=== PATIENT | female | born 1975 | race Caucasian/White ===

== ENCOUNTER 2017-06-12 08:58 | Inpatient (IN) | payer OTHER ==
--- NOTE | 2017-06-06 16:35 | MH ---
cc: DELMA LESLIE DATE OF ADMISSION: 06/12/2017 DATE OF 1975 PRINCIPAL DIAGNOSIS History of right breast cancer in 2016 with a hereditary breast cancer mutation. ATTENDING PHYSICIAN Delma Leslie MD HISTORY OF PRESENT ILLNESS The patient is a 41-year-old female originally from [place], diagnosed with stage III right breast cancer in March of 2016. She was treated with lumpectomy and axillary dissection for a T2N3 carcinoma involving infraclavicular lymph nodes. This included a level three axillary dissection extending up to the subclavian vein and was followed by whole breast as well as axillary radiation. She also received adjuvant chemotherapy with Adriamycin and Cytoxan. Her tumor was ER/DE positive and HER2/malick amplified but she did not receive trastuzumab. She subsequently immigrated to the [place] and was evaluated by Dr. Kee in medical oncology and was started on Herceptin in November of 2016. She also underwent genetic testing which was positive for a heterozygous BRCA2 mutation. She has opted for bilateral mastectomy with immediate tissue sample color maker reconstruction and is also awaiting a gynecology evaluation to discuss laparoscopic oophorectomy. ALLERGIES She has no drug allergies. CURRENT MEDICATIONS Tamoxifen 20 mg daily. MEDICAL PROBLEMS Included stage III right breast cancer. PAST SURGERIES As described above. REVIEW OF SYSTEMS A 12-point review of systems was otherwise noncontributory. PHYSICAL EXAMINATION GENERAL: She is alert and oriented x3 and in no acute distress. VITAL SIGNS: She was 5 feet 3.8 inches and weighed 170 pounds with a BMI of 30. Blood pressure was 122/82, temperature 98.5, heart rate 63, respirations 16. HEENT: Exam was unremarkable. NECK: The neck was supple with no adenopathy or thyromegaly. CHEST: Chest was clear throughout. CARDIAC: Exam was unremarkable. BREASTS: Exam revealed fibrocystic changes with an area of induration in the upper outer right breast and a 12 o'clock crescent scar with associated induration and volume loss. She also has hyperpigmentation and central breast edema on the right side. There is no adenopathy. ABDOMEN: The abdomen was soft and nontender with no hepatosplenomegaly or masses. The remainder of her exam was unremarkable. IMPRESSION Ms. Warren has a history of stage III right breast cancer with previous radiation as well as adjuvant chemotherapy. Because she has a genetic predisposition, she is now opting for bilateral mastectomy with immediate reconstruction and this will be coordinated with Dr. Rodriguez. She will not require further axillary sampling. [facility] #[id number]. MD MARILYN Pyle/DEYSI /3:56 PM /4:04 PM
[~2017-06-12] VITALS: Ht 162.6 cm; Wt 76.8 kg
[~2017-06-12 08:58] MED LIST: TAMO20TA6 PO; [UNRECOGNIZED DRUG - CODE] IV-CENTRAL
[2017-06-12] MEDS ORDERED: ONDANSETRON HCL 4 MG/2 ML VIAL IV PUSH SCH (09:30)
[2017-06-12] MEDS ORDERED: CHLORHEXIDINE GLUCONATE 2 % 1 PACK (2 CLOTHS) TOPICAL PRN (09:30)
[2017-06-12] MEDS ORDERED: INSULIN HUMAN REGULAR 1,000 UNITS/10 ML VIAL SQ PRN (09:30)
[2017-06-12] MEDS ORDERED: POVIDONE IODINE 5% (ANTISEPSIS KIT) 4 APPLICATIONS EACH NARE PRN (09:30)
[2017-06-12] MEDS ORDERED: METOPROLOL TARTRATE 25 MG TAB PO PRN (09:30)
[2017-06-12] MEDS ORDERED: LACTATED RINGER'S 1000 ML IV PRN (09:30)
[2017-06-12] MEDS ORDERED: ceFAZolin 2 GM PREMIX 50 ML IV SCH ×2 (09:30→18:30)
[2017-06-12] MEDS ORDERED: SODIUM CHLORID 0.9% 500 ML IV PRN (09:30)
[2017-06-12] MEDS ORDERED: ACETAMINOPHEN 1000 MG/100 ML 100 ML IV ONE (11:08)
[2017-06-12] MEDS ORDERED: FAMOTIDINE 20 MG/2 ML VIAL ONE (11:08)
[2017-06-12] MEDS ORDERED: MIDAZOLAM HCL 2 MG/2 ML VIAL ONE (11:08)
[2017-06-12] MEDS ORDERED: DEXAMETHASONE SOD PHOS 4 MG/ML VIAL ONE (11:08)
[2017-06-12] MEDS ORDERED: BACITRACIN TOP OINT 15 GM TUBE ONE (11:22)
[2017-06-12] MEDS ORDERED: fentaNYL CITRATE 250 MCG/5 ML AMP ONE (11:22)
[2017-06-12] MEDS ORDERED: HYDROmorphone HCL PF 2 MG/ML VIAL ONE (11:22)
[2017-06-12] MEDS ORDERED: GENTAMICIN SULFATE 80 MG/2 ML VIAL ONE (11:22)
[2017-06-12] MEDS ORDERED: BUPIVACAINE/EPINEPHRINE 0.5% 50 ML VIAL ONE (11:50)
[2017-06-12] MEDS ORDERED: PROPOFOL 200 MG/20 ML AMP IV ONE (12:00)
[2017-06-12] MEDS ORDERED: LACTATED RINGER'S 1000 ML INJ 1,000 ML IV ONE (12:00)
[2017-06-12] MEDS ORDERED: NEOSTIGMINE 3 MG/3 ML SYR IV ONE (12:00)
[2017-06-12] MEDS ORDERED: ceFAZolin INJ 1,000 MG VIAL IV ONE ×2 (12:00→14:26)
[2017-06-12] MEDS ORDERED: ONDANSETRON HCL 4 MG/2 ML VIAL IV PUSH ONE (12:00)
[2017-06-12] MEDS ORDERED: DO NOT ADM ANY ANTICOAGULANT DRUGS PRN (15:03)
[2017-06-12] MEDS ORDERED: *morphine SULFATE 8 MG/ML PERIprocedure ONLY ONE ×2 (15:16→15:30)
[2017-06-12] MEDS: LACTATED RINGER'S 1000 ML INJ 1,000 ML IV SCH ×2 (15:20→20:52)
[2017-06-12] MEDS: ceFAZolin 2 GM PREMIX 50 ML IV SCH (15:35)
[2017-06-12 16:00] VITALS: BP 99/58; PULSE 50; RESP 16; TEMP 96.4; O2SAT 95
[2017-06-12] MEDS ORDERED: *ONDANSETRON 4 MG VIAL PERIprocedural Use ONLY ONE (16:48)
[2017-06-12 20:00] VITALS: BP 102/57; PULSE 50; RESP 18; TEMP 96.4; O2SAT 96
[2017-06-12 20:24] VITALS: O2SAT 95
[2017-06-12] MEDS: ONDANSETRON HCL 4 MG/2 ML VIAL IV PRN (20:43)
[2017-06-12] MEDS: MORPHINE SULFATE 4 MG/ML INJ IV PRN (20:46)
[2017-06-13] VITALS (8 sets, daily range): BP systolic 103–116; BP diastolic 53–68; PULSE 51–86; RESP 16–21; TEMP 97.5–99.2; O2SAT 92–96
[2017-06-13] MEDS: ceFAZolin 2 GM PREMIX 50 ML IV SCH ×2 (00:31→08:14)
[2017-06-13] MEDS: MORPHINE SULFATE 4 MG/ML INJ IV PRN ×2 (00:31→06:08)
--- NOTE | 2017-06-13 08:04 | PD.PLAS.PN ---
Subjective Remarks Patient doing well Had good sleep Pain mild to moderate, ok with Rx No nausea. vital normal Breast flaps soft good color. No bruising noted yet Small area of fullness just medial to the chemo port on the left side No clear hematoma MINISTERIO drains active. OK to discharge when see by Dr. Plummer Will follow in office Saturday. Vital Signs Date Time Temp Pulse Resp B/P (MAP) Pulse Ox O2 Delivery O2 Flow Rate FiO2 06/13/17 06:15 97.5 58 18 116/58 (77) 96 06/13/17 00:00 97.9 51 18 111/59 (76) 92 06/12/17 20:24 95 2.00 06/12/17 20:00 96.4 50 18 102/57 (72) 96 06/12/17 16:30 60 16 124/58 (80) 99 Nasal Cannula 2 06/12/17 16:15 61 16 116/56 (76) 100 Nasal Cannula 2 06/12/17 16:00 96.4 50 16 99/58 (72) 95 06/12/17 16:00 62 16 115/52 (73) 99 Nasal Cannula 2 06/12/17 15:45 66 16 122/56 (78) 98 Nasal Cannula 2 06/12/17 15:35 16 06/12/17 15:30 62 16 119/59 (79) 99 Nasal Cannula 2 06/12/17 15:21 16 06/12/17 15:15 78 16 126/58 (80) 97 Nasal Cannula 2 06/12/17 15:04 97.7 80 16 118/56 (76) 100 Nasal Cannula 2 06/12/17 09:55 97.9 72 16 119/76 (90) 98 I/O 06/12/17 06/12/17 06/12/17 06/13/17 06/13/17 06/13/17 07:00 15:00 23:00 07:00 15:00 23:00 Intake Total 50 ml 200 ml 1150 ml Output Total 150 ml 535 ml 645 ml Balance -100 ml -335 ml 505 ml Intake IV Total 50 ml 200 ml 1150 ml Output Urine Total 450 ml 600 ml Drainage Total 85 ml 45 ml Estimated Blood Loss 150 ml Domenico Rodriguez MD Jun 13, 2017 08:04
[2017-06-13] MEDS: ONDANSETRON HCL 4 MG/2 ML VIAL IV PRN (08:59)
--- NOTE | 2017-06-13 11:22 | MP ---
cc: TETE LESLIE DATE OF SURGERY 06/12/2017 PRINCIPAL DIAGNOSIS History of right breast cancer and BRCA2 positive. POSTOPERATIVE DIAGNOSIS History of right breast cancer and BRCA2 positive. PROCEDURE PERFORMED 1. Bilateral mastectomy with immediate tissue historiography professor reconstruction. 2. Nipple-sparing mastectomy on the left side. SURGEONS MD Domenico Alcocer MD ANESTHESIA General endotracheal. INDICATION The patient is a 41-year-old [facility] female with a history of right breast cancer treated with lumpectomy, axillary dissection, whole breast radiation and adjuvant chemotherapy. She is HER2 positive and is currently undergoing a year of trastuzumab. She subsequently had genetic testing and was found to have a deleterious BRCA2 mutation. She now presents for prophylactic bilateral mastectomies. FINDINGS AT THE TIME OF SURGERY Significant scarring related to radiation and prior surgery was noted on the right side. There was no gross evidence of residual carcinoma. PROCEDURE PERFORMED After informed consent was obtained and site verification was performed, the patient was brought to the major operating room where she underwent general anesthesia via an endotracheal tube. She was given a single dose of IV Ancef and sequential compression hose were placed as well as a Burns catheter. The right and left breast were then prepped and draped in sterile fashion. 200 cc of tumescent solution mixed with 15 cc of 0.5% Marcaine with epinephrine were then infiltrated circumferentially around each breast in the plane between the subcutaneous fat and anterior breast fascia. The inframammary crease incision was then sharply opened and sharp dissection was performed to develop the plane between the subcutaneous fat and anterior breast fascia medially and laterally up to the level of the nipple. Electrocautery dissection was then performed to develop the posterior plane beneath the breast and lifting breast and pectoralis fascia off the pectoralis muscle medially and laterally up to the level of the clavicle. The nipple was then circumferentially dissected free from surrounding structures and included with the mastectomy specimen and further sharp dissection was performed to develop the medial and lateral anterior plane up to the level of the clavicle. There was significant scarring in the area of an upper crescent lumpectomy scar and sharp dissection was performed around this point. The breast was oriented with the nipple anterior, one short suture superiorly, and one long suture laterally. Reconstruction was then performed by Dr. Rodriguez and will be included on a separate dictation. MD MARILYN Pyle/ROMULO /1:24 PM /11:10 AM
--- NOTE | 2017-06-13 11:40 | MP ---
cc: RADHA RODRIGUEZ M.D. DATE OF SURGERY 06/12/2017 PREOPERATIVE DIAGNOSIS Right breast cancer. Patient for bilateral mastectomies. POSTOPERATIVE DIAGNOSIS Right breast cancer. Patient for bilateral mastectomies. OPERATION 1. Right breast mastectomy by Dr. Plummer 2. Left simple mastectomy by Dr. Rodriguez. 3. Bilateral breast reconstruction with tissue shopping centre manager and AlloMax graft by Dr. Rodriguez. SURGEON Dr. Delma Rodriguez ANESTHESIA General. INDICATIONS A 41-year-old white female with right breast cancer that was diagnosed approximately a year ago. She actually had surgery in [place] and radiation therapy as well post lumpectomy. She is has BRCA2 positive and a strong family history. She is her for bilateral mastectomies. She has a chemotherapy port on the left side that is being used. The patient underwent detailed explanation of the procedure, pros, cons, risks, benefits and complications were discussed. The use of shopping centre manager implant versus autologous tissue was pointed out. The patient has elected to go with the shopping centre manager and implant option with the AlloMax graft. She understands the multiple stages involving and the time it takes to complete all may be as long as a year or more. The nipple-areolar complex reconstruction will be the last thing after the final implants are in place and satisfactory. The patient does have good position of the nipple on the left side and also on the right side which is somewhat scarred and heavily radiated. The right side was done by Dr. Plummer using only an areola-sparing technique while on the left side it was possible to preserve the nipple with biopsy control from the base of the nipple. The patient is otherwise a good candidate for surgery. She does have realistic expectations and understands that the two sides will be asymmetric overall and that the healing on the right side may be compromised due to her previous surgical scar position in the upper half of the breast as well as the radiation therapy. The long-term reconstruction will also be different due to the difference in the tissue quality on the two sides. PROCEDURE The patient was brought to the operating room, was given supine position. Anesthesia was started. Prep and drape was done. IV antibiotic had been given. The time-out was called and completed. The surgery on the right side was done by Dr. Plummer and will be dictated as such. The left side simple mastectomy was started by first tumescing the plane between the skin and the breast with dilute mixture of Marcaine and saline. The inframammary long incision was made. It was dissected down to the breast level and then a flap was elevated. Once it reached under the nipple area, a tissue specimen was taken from immediately below the nipple from the breast side and will be sent for pathology examination separately from the main specimen. The dissection was continued around the whole breast and also off the chest wall. The specimen was suture marked superiorly with a long suture and the position of the nipple was marked with a separate suture with instructions for a second look at the nipple site on final pathology exam as well. The weight of the tissue was 500 gm on the left side and 350+ gm on the right side. Once both mastectomies were done, both areas were checked for hemostasis. They were copiously cleaned out with irrigation. Fresh sterile towels were applied and the surgery was continued by myself. Bilateral subpectoral pockets were created. Hemostasis was completed. The drains were inserted. AlloMax grafts 8 x 16 were hydrated and treated with antibiotic and sutured in place along the inframammary crease and along the anterior axillary line leaving the central portion open. The shopping centre manager selected are Natrelle [id number] expanders; the serial number [id number] on the patient's left side, serial number [id number] on the patient's right side. The expanders were emptied of all the air and then they were oriented with filling port at the 12 o'clock position. They were placed under the muscle and the AlloMax was applied to the lower half covering the exposed part of the shopping centre manager. AlloMax was loosely tacked over the muscle. All the incisions were closed in two layers and the expanders were filled with a three-way knotted technique. The right side was filled to 220 cc. The left side was filled to 260 cc. The skin was adjusted and smoothed out over the mound and the vacuum drains were activated. The intraoperative blood loss was less than 50 cc. No complications. The patient remained stable. signed, not fully reviewed MD NAWAF Gorman/ROMULO /2:42 PM /11:16 AM ALFONSO
[2017-06-13] MEDS: TAMOXIFEN CITRATE 10 MG TAB PO SCH (12:43)
--- NOTE | 2017-06-13 14:01 | HHI.PR ---
Subjective Subjective Notes Patient not ambulating. Still has urinary catheter and receiving IV analgesics. Pain subjectively 7/10. Tolerating diet. Objective Vitals/I&O Vital Signs Date Time Temp Pulse Resp B/P (MAP) Pulse Ox O2 Delivery O2 Flow Rate FiO2 06/13/17 13:26 94 21 06/13/17 12:47 98.9 83 20 112/53 (72) 06/12/17 20:24 2.00 06/12/17 16:30 Nasal Cannula Labs Wounds clean and dry. No flap ischemia. Left nipple viable. Drain output 80cc right, 50 cc left. A/P Problem List: (1) Breast CA ICD Codes: C50.919 - Malignant neoplasm of unspecified site of unspecified female breast Status: Chronic (2) BRCA2 positive ICD Codes: Z15.01 - Genetic susceptibility to malignant neoplasm of breast; Z15.02 - Genetic susceptibility to malignant neoplasm of ovary Assessment and Plan Doing well S/P bilateral mastectomy with reconstruction but need to encourage ambulation and oral pain control. Discharge Planning Anticipate discharge tomorrow. Attending Statement Inadequate pain control and ambulation for discharge today. Problem Qualifiers (1) Breast CA: Qualified Codes: C50.411 - Malignant neoplasm of upper-outer quadrant of right female breast; Z17.0 - Estrogen receptor positive status [ER+] Delma Plummer MD Jun 13, 2017 14:01
[2017-06-13] MEDS: oxyCODONE/ACETAMINOPHEN 5 MG/325 MG TAB PO PRN ×2 (14:17→21:07)
[2017-06-13] MEDS: CYCLOBENZAPRINE HCL 10 MG TAB PO SCH ×2 (15:08→21:08)
[2017-06-13] MEDS: LACTATED RINGER'S 1000 ML INJ 1,000 ML IV SCH (21:19)
[2017-06-14] VITALS: BP 101/63; PULSE 91; RESP 16; TEMP 99; O2SAT 92
[2017-06-14 04:00] VITALS: BP 99/64; PULSE 83; RESP 16; TEMP 98.5; O2SAT 92
[2017-06-14] MEDS: oxyCODONE/ACETAMINOPHEN 5 MG/325 MG TAB PO PRN ×2 (05:28→11:48)
[2017-06-14] MEDS: CYCLOBENZAPRINE HCL 10 MG TAB PO SCH (05:28)
[2017-06-14 08:00] VITALS: BP 109/66; PULSE 83; RESP 18; TEMP 97.4; O2SAT 92
[2017-06-14] MEDS: LACTATED RINGER'S 1000 ML INJ 1,000 ML IV SCH (08:00)
[2017-06-14] MEDS: TAMOXIFEN CITRATE 10 MG TAB PO SCH (09:12)
--- NOTE | 2017-06-14 09:14 | HHI.PR ---
Subjective Subjective Notes Resting more comfortably. Pain controlled on oral analgesics.Tolerating diet. Objective Vitals/I&O Vital Signs Date Time Temp Pulse Resp B/P (MAP) Pulse Ox O2 Delivery O2 Flow Rate FiO2 06/14/17 08:00 97.4 83 18 109/66 (80) 92 06/13/17 13:26 21 06/12/17 20:24 2.00 06/12/17 16:30 Nasal Cannula Labs Drain output 40/40 each side. Flaps and left nipple viable. Cardiovascular: Regular Lungs: Clear Wound Wound : Wound Location: Chest Appearance: Clean & Dry Drainage: Clear A/P Problem List: (1) Breast CA ICD Codes: C50.919 - Malignant neoplasm of unspecified site of unspecified female breast Status: Chronic (2) BRCA2 positive ICD Codes: Z15.01 - Genetic susceptibility to malignant neoplasm of breast; Z15.02 - Genetic susceptibility to malignant neoplasm of ovary Assessment and Plan Doing well S/P bilateral mastectomy with reconstruction . Discharge Planning Discharge home today. Attending Statement Excellent recovery. Ready for discharge. Problem Qualifiers (1) Breast CA: Qualified Codes: C50.411 - Malignant neoplasm of upper-outer quadrant of right female breast; Z17.0 - Estrogen receptor positive status [ER+] Delma Plummer MD Jun 14, 2017 09:14
[2017-06-14] MEDS ORDERED: CYCL1TAB29 PO (09:29)
--- NOTE | 2017-06-14 09:33 | HHI.DS ---
Discharge Summary Admission Date Jun 13, 2017 at 16:20 Discharge Date: Jun 14, 2017 Admitting Diagnosis Breast cancer (1) BRCA2 positive ICD Codes: Z15.01 - Genetic susceptibility to malignant neoplasm of breast; Z15.02 - Genetic susceptibility to malignant neoplasm of ovary Status: Chronic (2) Breast CA ICD Codes: C50.919 - Malignant neoplasm of unspecified site of unspecified female breast Status: Chronic Procedures Bilateral mastectomy with immediate tissue pin feather machine operator reconstruction Brief History 41 year old patient with history right breast cancer and BRCA2 positive. Now presents for bilateral mastectomy. PE at Discharge Chest wall wounds healing with no infection or flap ischemia. Pt Condition on Discharge: Good Discharge Disposition: Discharge Home Discharge Instructions DIET: Follow Instructions for: As Tolerated, No Restrictions Activities you can perform: Shower Only-No Bath Activities to avoid: Lifting/Bending, Bathing, Driving Delma Plummer MD Jun 14, 2017 09:33
[2017-06-14 12:00] VITALS: BP 106/62; PULSE 81; RESP 18; TEMP 98.5; O2SAT 93
--- NOTE | 2017-06-18 21:41 | MD ---
cc: DELMA LESLIE M.D. ADMISSION DATE: 06/13/2017 DISCHARGE DATE: 06/14/2017 PRINCIPAL DIAGNOSIS History of right breast cancer with hereditary predisposition to breast cancer. PROCEDURE PERFORMED During the admission, bilateral mastectomy with immediate tissue powertrain design engineer reconstruction. ATTENDING PHYSICIAN Marilin Leslie MD HISTORY OF PRESENT ILLNESS The patient is a 41-year-old status post a right breast lumpectomy and axillary dissection as well as adjuvant chemotherapy and whole breast radiation in [place] approximately 1 year ago. She subsequently immigrated to [facility] and was found to have a HER2/malick positive tumor and began a delayed course of Trastuzumab. She was also noted to be positive for a BRCA2 mutation and she has opted for bilateral mastectomy with immediate reconstruction. PAST MEDICAL HISTORY As described above. MEDICATIONS Her only medication on admission was Tamoxifen 20 milligrams daily as well as the Herceptin every 3 weeks. PAST SURGERIES As described above. ALLERGIES She has no drug allergies. PHYSICAL EXAMINATION GENERAL: On physical exam she is alert and oriented x3 and in no acute distress. HEENT: Exam was unremarkable. NECK: The neck was supple with no adenopathy or thyromegaly. CHEST: Clear. CARDIAC EXAMINATION: Unremarkable. BREASTS: Exam was significant for a large crescent scar in the upper outer right breast as well as an axillary scar. The left breast was larger than the right and there were no obvious masses. ABDOMEN: The abdomen was soft and nontender with no masses. The remainder of her exam was unremarkable. HOSPITAL COURSE The patient was admitted and underwent bilateral skin sparing mastectomy with immediate tissue powertrain design engineer reconstruction. She did have a nipple sparing procedure on the left side. Her postoperative course was significant for pain control issues requiring a 36 hour stay and a prolonged course of IV narcotics. By the second postoperative day, she was tolerating oral analgesics with good pain control as well as Flexeril for muscle spasm. She is tolerating a diet and was discharged home in good condition. She will follow up as scheduled next week. DISCHARGE MEDICATIONS Included the Tamoxifen as well as oxycodone as needed and Flexeril 10 milligrams q. 8 hours p.r.n. Delma Leslie MD CEAyaan/EO /9:34 AM /9:29 PM
== END 2017-06-14 13:18 | disposition home or self-care (01) | DRG 585 ==
LOC: HSDC 08:58 → HOCA 15:03 → OBSVTOIN 06-13 16:20
PROVIDERS: ADMIT Surgery; ATTEND Surgery
PROC: 0HTV0ZZ Resection of Bilateral Breast, Open Approach (ICD-10-PCS; principal; 2017-06-13)
PROC: 0HHV0NZ Insertion of Tissue Expander into Bilateral Breast, Open Approach (ICD-10-PCS; 2017-06-13)
DX: Z40.01 Encounter for prophylactic removal of breast (principal); Z85.3 Personal history of malignant neoplasm of breast; Z17.0 Estrogen receptor positive status [ER+]; Z15.01 Genetic susceptibility to malignant neoplasm of breast; Z92.3 Personal history of irradiation; Z92.21 Personal history of antineoplastic chemotherapy; Z15.02 Genetic susceptibility to malignant neoplasm of ovary
CPT/HCPCS: 88307; C1789; J0131; J0690; J1100; J1170; J1580; J2250; J2270; J2405; J2710; J3010; J7120; Q4100

== ENCOUNTER → 2018-03-19 | Day surgery (SDC) | payer OTHER ==
[~2018-03-19] VITALS: Ht 162.6 cm; Wt 69.3 kg
[~2018-03-19] MED LIST changes: +ACETAMINOPHEN 1000 MG/100 ML 100 ML IV ONE; +ANAS1 PO; +APIX5TAB PO; +BACT800T5 PO; +CALC1TAB87 PO; +CEPH-460 PO; +CHLORHEXIDINE GLUCONATE 2 % 1 PACK (2 CLOTHS) TOPICAL PRN; +DEXAMETHASONE SOD PHOS 4 MG/ML VIAL IV ONE; +DO NOT ADM ANY ANTICOAGULANT DRUGS PRN; +GLYCOPYRROLATE 1 MG/5 ML SYRINGE IV PUSH ONE; +HYDR-3516 PO; +HYDROmorphone HCL 2 MG TAB PO PRN; +HYDROmorphone HCL PF 0.5 MG/0.5 ML SYRINGE IV PRN; +LACTATED RINGER'S 1000 ML INJ 1,000 ML IV ONE; +LACTATED RINGER'S 1000 ML IV PRN; +LACTCAP8 PO; +LIDOCAINE 1%/EPINEPHrine 1:100,000 SOLN 50 ML VIAL ONE; +LIDOCAINE HCL 1% PF 5 ML SYRINGE OTHER ONE; +METOPROLOL TARTRATE 25 MG TAB PO PRN; +MIDAZOLAM HCL 2 MG/2 ML VIAL ONE; +NEOSTIGMINE 5 MG/5 ML SYRINGE IV PUSH ONE; +ONDANSETRON HCL 4 MG/2 ML VIAL IV PUSH ONE; +PHENYLEPH/NS 1000 MCG/10 ML SYR IV ONE; +POVIDONE IODINE 5% (ANTISEPSIS KIT) 4 APPLICATIONS EACH NARE PRN; +PROPOFOL 200 MG/20 ML AMP IV ONE; +ROCURONIUM INJ 50 MG/5 ML SYRINGE IV PUSH ONE; +SODIUM CHLORID 0.9% 500 ML IV PRN; -[UNRECOGNIZED DRUG - CODE] IV-CENTRAL; +ceFAZolin 2 GM PREMIX 50 ML IV SCH; +ceFAZolin 2 GM PREMIX 50 ML ONE; +ceFAZolin INJ 1,000 MG VIAL IV ONE; +ceFAZolin INJ 1,000 MG VIAL ONE; +ePHEDrine/NS 25 MG/5 ML SYRINGE IV ONE
[2018-03-19 13:40] VITALS: BP 103/66; PULSE 61; RESP 18; TEMP 97.6; O2SAT 97
--- NOTE | 2018-03-20 09:29 | PD.OP ---
Operative Report Date of Surgery: March 19, 2018 Preoperative Diagnosis: s/p Bilateral Breast Reconstruction with Tissue Expanders and Allomax Postoperative Diagnosis: s/p Bilateral Breast Reconstruction with Tissue Expanders and Allomax Procedure: Bilateral Breast Tissue athletics teacher removal, internal reshaping with partial capsulectomies, capsulorraphy and repositioning of infra mammary folds, bilateral breast second stage reconstructions with silicone gel style 410 tear drop shaped implants and Allomax graft Anesthesia: gen Surgeon: Domenico Rodriguez Competitive Shopper(s): rn Resident Surgeon: none Operation and Findings: Indications: Patient is s/p Bilateral mastectomies, Bilateral immediate TE and Allomax reconstruction several months ago. She has received full treatment with Radiation therapy to the right breast. She has significantly thickened and distorted / discolored breast flaps on the right side, including one area of weak flap that required a near complete deflation of the Right side tissue athletics teacher - original expansion had been 390 cc. She was in the middle of aggressive chemotherapy for metastatic liver nodules a few months ago and a surgical correction was not allowed. Now she has finished the chemo and awaiting a second agent to be started. She has had several appointments and discussions about ongoing reconstructions, risks, possible complications etc, implant selection was done at the last visit - she agrees to tear drop silicone gels. Size may be a bit smaller than 390 - particularly what can be accommodated on the right side due to the shrunk envelope. She was also explained possible need to create an additional fasciocutaneous flap from the mid lateral chest on the right side if the breast flaps were too tight for a desirable size of the implant. The weak spot on the Right breast will also need reinforcing - with her own capsule tissues and possibly with additional Allomax. The left side dimensions of the flap if need to be adjusted on the lower pole will result in shifting of the nipple areola down over the implant and may not look anatomic. She is ok with that. She is willing to proceed with the second stage reconstruction. She understands that there may be intraoperative or postoperative complications and that the reconstruction may fail and particularly on the right side she may need autologous tissue reconstruction in future due to the radiation damaged tissues not looking or functioning normal. Patient requested to avoid doing the fasciocutaneous flap on the right side when seen in the preop holding area. Procedure: Patient was brought to the operating room, general anesthesia started, time out completed. In the supine position, it was noted that the Right breast IMF is nearly 4 cm lower than the Left side and the upper pole position of the tissue athletics teacher is also significantly mismatched. It was decided to raise the Right IMF while lowering the Left side to make them as level as possible in the supine position. The IMF position of left side is more mobile in standing position and it will be necessary to avoid changing the lower pole soft tissue dimensions on the left side in order to make this shift of the IMF possible. Prep and drape was done. Lidocaine 1% with Epi was used for infiltration of the previous surgical scars. Scar lines were excised too. On the right side the dissection was carried down to the chest wall fascia and the tissue between the scar line and the high IMF was preserved, TE capsule was opened, it contained a small amount of watery clear / light yellow fluid without any mucoid contents and no sign of active infection or redness to the capsule. A routine culture sample was taken. [employer] cut open and aspirated, and removed with gentle separation from the capsule. The lower anterior edge of the capsule was linearly scored in alternate two levels in order to allow stretching of the same. Part of the medial capsules were excised and upper border of the capsule was opened from 10 o'clock to 2 o'clock position. The weak spot on the anterior flap was identified - it is approx 1.5 cm medial to the areola border and towards 2 o'clock position. It is approx 1.5 cm in diameter. Two incisions were made - 1 cm away form the border of this area medial and lateral to it, going vertical to the upper border of the capsule, a flap was raised from the capsule dissecting form the upper edge towards the weak spot - stopping about 1 cm before the edge. The flap was turned over itself and sutured with 3/0 Vicryl interrupted sutures to a position 1 cm below the weak spot. A 4 x 16 cm piece of Allomax was hydrated, applied over the capsule flap, sutured with 3/0 vicryls around the area and excess trimmed just above the upper edge of the breast flap. The pectoralis muscle medial border was released. Upper end of the pocket was also extended another 1.5 cm. Hemostasis was excellent. A 390 cc silicone sizer was used - it was placed in the pocket as high as the tissues allowed, borders smoothed out and it was kept in place to get some intra operative expansion of the breast flaps. The linear adhesion of the upper lateral flap area needed to be left alone at this time as the flap thickness was not adequate, particularly laterally and the area is in the radiated field. Surgery was continued on left side. On the left side, the TE capsule was opened, again small amount of clear yellow fluid was noted and a routine culture sample was taken. The capsule on the lateral gutter was excised in a 3 cm strip going from just above the anterior axillary fold to the lateral end of the IMF line. The lower incision border tissues were raised downwards for 2 cm. Medially the capsule and the pectoralis muscle borders were released. Upper capsule was on the posterior aspect, 1.5 cm below the current upper position and raised off the chest wall tissues, and also off the anterior flap, pulled down and sutured to the posterior chest wall capsule, moving the upper end of the pocket down by 1.5 cm. Hemostasis was again excellent. The sizer 390 cc was placed as low as possible against the new IMF position and the overall borders were smoothed out. The new position seemed easy enough to close the areas without excessive tension. 0 vicryl interrupted sutures were placed on the right side lower incision flap and the chest wall, using the periosteum of the rib, - approx 1.5 cm higher was possible to achieve. 2/0 Vicryl open sutures were pre placed and the breast implants were inserted. The anterior lower pole position was matched to 6 o' clock, the lower pole position adjusted to make them as level as the tissues allowed, no drains were needed. Allomax was also adjusted over the implant on the Right side. Patient was examined in supine and semi-sitting position. The 2/ 0 vicryls were tied, rest of the closure was completed with internal 3/0 Vicryls. No need for skin sutures. All areas cleaned, xeroform and sterile dressing / bra applied. Patient remained stable, no complications. Blood loss minimal, less than 5 cc each side. [employer] Implant catalogue number [id number], 375 cc silicone gels, textured, tear drop, style 410. serial number [id number] on the Right side, [id number] on the Left side. Allomax SN [id number] Domenico Rodriguez MD March 20, 2018 09:29
== END | disposition home or self-care (01) ==
LOC: HSDC 05:42
PROVIDERS: ATTEND Plastic Surgery
DX: Z42.1 Encounter for breast reconstruction following mastectomy (principal); Z85.3 Personal history of malignant neoplasm of breast
CPT/HCPCS: 00402; 19342; 87015; 87070; 87102; 87116; 87205; 87206; C1789; J0131; J0690; J1100; J1170; J2250; J2370; J2405; J2710; J3010; J7120; Q4100

== ENCOUNTER 2018-03-22 16:30 | Observation (INO) | payer OTHER ==
[~2018-03-22] VITALS: Ht 157.5 cm; Wt 70.0 kg
[~2018-03-22 16:30] MED LIST changes: -ACETAMINOPHEN 1000 MG/100 ML 100 ML IV ONE; -ANAS1 PO; -CALC1TAB87 PO; -CEPH-460 PO; -CHLORHEXIDINE GLUCONATE 2 % 1 PACK (2 CLOTHS) TOPICAL PRN; -DEXAMETHASONE SOD PHOS 4 MG/ML VIAL IV ONE; -DO NOT ADM ANY ANTICOAGULANT DRUGS PRN; -GLYCOPYRROLATE 1 MG/5 ML SYRINGE IV PUSH ONE; -HYDROmorphone HCL 2 MG TAB PO PRN; -HYDROmorphone HCL PF 0.5 MG/0.5 ML SYRINGE IV PRN; -LACTATED RINGER'S 1000 ML INJ 1,000 ML IV ONE; -LACTATED RINGER'S 1000 ML IV PRN; -LIDOCAINE 1%/EPINEPHrine 1:100,000 SOLN 50 ML VIAL ONE; -LIDOCAINE HCL 1% PF 5 ML SYRINGE OTHER ONE; -METOPROLOL TARTRATE 25 MG TAB PO PRN; -MIDAZOLAM HCL 2 MG/2 ML VIAL ONE; -NEOSTIGMINE 5 MG/5 ML SYRINGE IV PUSH ONE; -ONDANSETRON HCL 4 MG/2 ML VIAL IV PUSH ONE; -PHENYLEPH/NS 1000 MCG/10 ML SYR IV ONE; -POVIDONE IODINE 5% (ANTISEPSIS KIT) 4 APPLICATIONS EACH NARE PRN; -PROPOFOL 200 MG/20 ML AMP IV ONE; -ROCURONIUM INJ 50 MG/5 ML SYRINGE IV PUSH ONE; -SODIUM CHLORID 0.9% 500 ML IV PRN; -ceFAZolin 2 GM PREMIX 50 ML IV SCH; -ceFAZolin 2 GM PREMIX 50 ML ONE; -ceFAZolin INJ 1,000 MG VIAL IV ONE; -ceFAZolin INJ 1,000 MG VIAL ONE; -ePHEDrine/NS 25 MG/5 ML SYRINGE IV ONE
[2018-03-22 16:33] VITALS: BP 133/95; PULSE 97; RESP 18; TEMP 98; O2SAT 97
--- NOTE | 2018-03-22 17:16 | PD ---
HPI Chief Complaint: Skin Problem Time Seen by Provider: 17:14 Travel History International Travel<30 days: No Contact w/Intl Traveler<30days: No Traveled to known affect area: No History of Present Illness HPI 42-year-old female came to the emergency room with history of right breast redness. Patient had bilateral breast reconstruction surgery done 4 days ago. Last night she noticed that the right breast flap was looking erythematous and swollen. No history of fever or chills. Patient is not in any severe pain. Patient has previous history of mastectomy secondary to breast cancer. She has had radiation therapy there. When I went to see the patient the plastic surgeon who had done the surgery was already in the room talking to the patient. Dr. Sena was the plastic surgeon and he had finished examining and evaluating the postop breast. Patient did not appear to be in any severe distress. PFSH Past Medical History Narrative Medical List of her past medical, surgical, social and family history is reviewed from the nursing note. Cancer: Yes (R breast CA with bilat mastectomy) Cardiovascular Problems: No Chemotherapy: Yes Diabetes: No Endocrine: No Gastrointestinal Disorders: No Genitourinary: No Hepatitis: No Hiatal Hernia: No Hypertension: No Immune Disorder: No Implanted Vascular Access Dvce: Yes Medical other: No Musculoskeletal: No Neurologic: No Psychiatric: No Reproductive: No Respiratory: No Radiation Therapy: Yes Thyroid Disease: No ?: Not LMP: 2 YEARS Past Surgical History Abdominal Surgery: No AICD: No Body Medical Devices: bilat chest tissue expanders Cardiac Surgery: No Ear Surgery: No Endocrine Surgery: No Eye Surgery: No Genitourinary Surgery: No Gynecologic Surgery: No Joint Replacement: No Neurologic Surgery: No Oral Surgery: No Pacemaker: No Thoracic Surgery: Yes (sirisha port placement/removal, R lumpectomy, bilat mastectomy with spacers ) Other Surgery: Yes Social History Alcohol Use: No Tobacco Use: No Substance Use: No Allergies-Medications (Allergen,Severity, Reaction): Coded Allergies: No Known Allergies (Verified Allergy, Unknown, 03/19/18) Comments No known drug allergies. Reported Meds & Prescriptions Reported Meds & Active Scripts Active Hydrocodone-Acetaminophen 5-325 mg Tab 1 Tab PO Q4H PRN 7 Days Bactrim DS (Sulfamethoxazole-Trimethoprim) 800-160 Mg Tab 1 Tab PO BID 7 Days Reported Probiotic (Lactobacillus Acidophilus) 10 Billion Cell Cap 1 Cap PO DAILY Narrative Medication List of her home medications reviewed from the nursing note. Review of Systems Except as stated in HPI: all other systems reviewed are Neg Physical Exam Narrative GENERAL: Awake, alert, no obvious distress SKIN: Focused skin assessment warm/dry. Right breast periareolar skin appears to be erythematous. There is some edema as well. Left breast does not show much discoloration. The inframammary incision appears to be clean. HEAD: Atraumatic. Normocephalic. EYES: Pupils equal and round. No scleral icterus. No injection or drainage. ENT: No nasal bleeding or discharge. Mucous membranes pink and moist. NECK: Trachea midline. No JVD. CARDIOVASCULAR: Regular rate and rhythm. No murmur appreciated. RESPIRATORY: No accessory muscle use. Clear to auscultation. Breath sounds equal bilaterally. GASTROINTESTINAL: Abdomen soft, non-tender, nondistended. Hepatic and splenic margins not palpable. MUSCULOSKELETAL: No obvious deformities. No clubbing. No cyanosis. No edema. NEUROLOGICAL: Awake and alert. No obvious cranial nerve deficits. Motor grossly within normal limits. Normal speech. PSYCHIATRIC: Appropriate mood and affect; insight and judgment normal. Data Data Last Documented VS Vital Signs Date Time Temp Pulse Resp B/P (MAP) Pulse Ox O2 Delivery O2 Flow Rate FiO2 03/22/18 16:54 18 03/22/18 16:33 98.0 97 133/95 (108) 97 Orders Orders Basic Metabolic Panel (Bmp) (03/22/18 17:23) Complete Blood Count With Diff (03/22/18 17:23) Blood Culture (03/22/18 17:23) Piperacil-Tazo 3.375 Gm Premix (Zosyn 3. (03/22/18 17:30) Vancomycin Inj (Vancomycin Inj) (03/22/18 17:30) Us Breast Unilateral (03/22/18 ) Admit Order (Ed Use Only) (03/22/18 20:16) Labs Laboratory Tests Test 03/22/18 18:30 White Blood Count 5.1 TH/MM3 Red Blood Count 4.33 MIL/MM3 Hemoglobin 12.3 GM/DL Hematocrit 36.8 % Mean Corpuscular Volume 84.9 FL Mean Corpuscular Hemoglobin 28.4 PG Mean Corpuscular Hemoglobin Concent 33.4 % Red Cell Distribution Width 15.6 % Platelet Count 184 TH/MM3 Mean Platelet Volume 8.5 FL Neutrophils (%) (Auto) 58.7 % Lymphocytes (%) (Auto) 33.7 % Monocytes (%) (Auto) 5.9 % Eosinophils (%) (Auto) 0.9 % Basophils (%) (Auto) 0.8 % Neutrophils # (Auto) 3.0 TH/MM3 Lymphocytes # (Auto) 1.7 TH/MM3 Monocytes # (Auto) 0.3 TH/MM3 Eosinophils # (Auto) 0.0 TH/MM3 Basophils # (Auto) 0.0 TH/MM3 CBC Comment DIFF FINAL Differential Comment Blood Urea Nitrogen 7 MG/DL Creatinine 0.90 MG/DL Random Glucose 80 MG/DL Calcium Level 9.4 MG/DL Sodium Level 138 MEQ/L Potassium Level 3.9 MEQ/L Chloride Level 101 MEQ/L Carbon Dioxide Level 25.8 MEQ/L Anion Gap 11 MEQ/L Estimat Glomerular Filtration Rate 68 ML/MIN MDM Medical Decision Making Medical Screen Exam Complete: Yes Emergency Medical Condition: Yes Medical Record Reviewed: Yes Differential Diagnosis Postsurgical infection, postsurgical hematoma Narrative Course 5:[address] Sena wanted an ultrasound of the breast which has been ordered. Have ordered labs as well. He wants the patient to be admitted at least overnight with IV Zosyn and vancomycin which has been ordered as well. 8 PM ultrasound of the breast showed a small seroma. CBC is within normal limit. Awaiting for the chemistry. Awaiting for the hospitalist to call back for admission. Procedures EKG Prior to Arrival: No Physician Communication Physician Communication Dr. Sena Diagnosis Primary Impression: Postoperative seroma Qualified Codes: L76.34 - Postprocedural seroma of skin and subcutaneous tissue following other procedure Additional Impression: Status post breast reconstruction surgery Admitting Information Admitting Physician Requests: Observation Scripts Cephalexin (Keflex) 500 Mg Cap 500 MG PO Q8H for Infection for 7 Days, #21 CAP 0 Refills Prov: Sadaf Gaston 03/23/18 Irma Gan MD Mar 22, 2018 17:16
[2018-03-22] MEDS ORDERED: VANCOMYCIN INJ 1,000 MG in SODIUM CHLOR 0.9% 250 ML INJ 250 ML IV ONE (17:30)
[2018-03-22] MEDS ORDERED: PIPERACIL-TAZO 3.375 GM PREMIX 50 ML IV ONE (17:30)
--- NOTE | 2018-03-22 17:47 | PD.PLAS.PN ---
Subjective Remarks Consult Plastic Surgery Chief complaint Patient had called me a few hours ago via text, concerned with Right breast - more swollen and red, increased pain on the outer aspect of the breast / axilla. She had bilateral second stage recon - irish gels, 410 style, 375 cc each side. Allomax small piece on the Right side. Had minimal blood loss in surgery and also has negative cultures / gram stains from each side that was done last week Saturday at surgery - routine cultures of intracapsular fluid. Expanders were normal. She was seen in [facility] yesterday and the breasts appeared normal postoperative appearance. Right was more firm to touch compared to the Left - expected partly from the radiation fibrosed flaps. No drains were used. Patient was advised to come to the ER to be checked and investigated. No fever, no nausea, no malaise. Feels ok otherwise. Right side is radiated - breast cancer. Examination: Both breast reconstructed - Left looks normal size and clean - normal color flap, soft to touch. Normal body temperature. Incision lines clean on both sides Right breast is edematous on the flap - more so on the central and lower parts and areola - Size is approx 5-10% larger than the left side Right breast flap color is brownish - from radiation and possibly a mix of red now. Local temperature of the flap is ok, same as the other side and upper parts of the breast / chest. Does not appear to be ecchymotic as this time. No blisters or black. Right breast prosthesis implant seems in good position, upper pole easily palpated. Lower flap edema makes the implant lower pole more difficult to feel. Both IMF level is well matched (preoperatively she had nearly 4+ cm level mismatch, Right side lower) Impression: Right breast swelling - increased since surgery. Possible edema of the radiated flaps only, or Possible fluid / blood collection INSIDE around the prosthesis. Rec; Discussed with Dr. Gan - she came in while I was with patient. To do an ultrasound / CT to check for any periprosthetic fluid. Also to place patient on prophylactic IV antibiotic coverage with both gram positive and negative coverage. She can be admitted to a medical service for now. Even with a small amount of possible fluid around the implant - we can treat her conservatively for another 1-2 days and see the progress. No immediate indication to explore the Right breast. Vital Signs Date Time Temp Pulse Resp B/P (MAP) Pulse Ox O2 Delivery O2 Flow Rate FiO2 03/22/18 16:54 18 03/22/18 16:33 98.0 97 18 133/95 (108) 97 Domenico Rodriguez MD Mar 22, 2018 17:47
--- NOTE | 2018-03-22 18:08 | RADRPT ---
EXAM DATE: 03/22/2018 6:04 PM EDT AGE/SEX: 42 years / Female INDICATIONS: Abscess. CLINICAL DATA: This is the patient's initial encounter. Patient reports that signs and symptoms have been present for 3 days and indicates a pain score of 3/10. MEDICAL/SURGICAL HISTORY: Carcinoma, breast. Blood clots. Chemotherapy. Radiation therapy. . Port placement/removal. Lumpectomy. Bilateral mastectomy. COMPARISON: No prior [facility] exams available for comparison. No external comparison. TECHNIQUE: Real-time ultrasound examination was performed using a high-frequency transducer. Conven tional and compound scanning techniques were used. FINDINGS: Patient is status post mastectomy. An implant is present. Surrounding soft tissues are mildly edemato us. Small amount of simple appearing fluid also seen adjacent to the implant capsule, likely small se melvin fluid. No organized or indurated appearing fluid. CONCLUSION: Mild nonspecific soft tissue edema and small pericapsular seroma. No evidence of abscess. Electronically signed by: Segundo Walters MD 03/22/2018 6:07 PM EDT
[2018-03-22 19:43] LABS: BASOPHIL % 0.8 % (0.0-2.0); EOSINOPHIL % 0.9 % (0.0-4.0); HEMATOCRIT 36.8 % (35.0-46.0); HEMOGLOBIN 12.3 GM/DL (11.6-15.3); LYMPH % 33.7 % (9.0-44.0); LYMPHOCYTE # 1.7 TH/MM3 (1.0-4.8); MEAN CELL VOLUME 84.9 FL (80.0-100.0); MEAN CORPUSCULAR HEMOGLOBIN 28.4 PG (27.0-34.0); MEAN CORPUSCULAR HGB CONC 33.4 % (32.0-36.0); MEAN PLATELET VOLUME 8.5 FL (7.0-11.0); MONO % 5.9 % (0.0-8.0); MONOCYTE # 0.3 TH/MM3 (0-0.9); NEUT % 58.7 % (16.0-70.0); PLATELET COUNT 184 TH/MM3 (150-450); RED BLOOD COUNT 4.33 MIL/MM3 (4.00-5.30); RED CELL DISTRIBUTION WIDTH 15.6 % (11.6-17.2); WHITE BLOOD COUNT 5.1 TH/MM3 (4.0-11.0)
[2018-03-22 20:04] LABS: BICARBONATE 25.8 MEQ/L (21.0-32.0); CALCIUM 9.4 MG/DL (8.5-10.1); CREATININE 0.9 MG/DL (0.50-1.00)
[2018-03-22] MEDS ORDERED: ACETAMINOPHEN/HYDROcodone 325 MG/7.5 MG TAB PO PRN (20:30)
[2018-03-22] MEDS ORDERED: ACETAMINOPHEN 325 MG TAB PO PRN (20:30)
[2018-03-22] MEDS ORDERED: ONDANSETRON ODT 4 MG TAB PO PRN (20:30)
[2018-03-22] MEDS ORDERED: Vancomycin Consult Pharmacy 1 EA OTHER SCH (20:30)
[2018-03-22] MEDS ORDERED: TEMAZEPAM 15 MG CAP PO PRN (20:30)
[2018-03-22 21:19] VITALS: BP 107/59; PULSE 80; RESP 16; TEMP 97.8; O2SAT 97
[2018-03-22 23:47] VITALS: BP 110/60; PULSE 78; RESP 17; TEMP 97.9; O2SAT 98
[2018-03-23] MEDS: PIPERACIL-TAZO 3.375 GM PREMIX 50 ML IV SCH ×3 (00:08→13:32)
[2018-03-23 05:05] VITALS: BP 102/56; PULSE 70; RESP 17; TEMP 98; O2SAT 98
--- NOTE | 2018-03-23 08:18 | HHI.HP ---
HPI Service [facility] Hospitalists Primary Care Physician Dr. Trent Cunningham Admission Diagnosis Postoperative seroma, status post breast reconstruction surgery Chief Complaint: Right breast swelling and pain Travel History International Travel<30 Days: No Contact w/Intl Traveler <30 Da: No Traveled to Known Affected Are: No History of Present Illness Ms. Warren is a 42 y/o female originally from [place], with right breast cancer diagnosed in March of 2016. She was treated with lumpectomy and axillary dissection for a T2N3 carcinoma involving infraclavicular lymph nodes and chemotherapy. Pt also received axillary and right breast radiation. Her tumor was ER/CT positive and HER2/malick amplified. She also underwent genetic testing which was positive for a heterozygous BRCA2 mutation. She subsequently immigrated to the [place] and has been following with Dr. Kee in medical oncology and was found to have some liver lesions and was treated with Taxotere, Trastuzumab, Pertuzumab completed in 01/2018 with great response and resolution of the liver lesions on last imaging studies. Pt recently underwent bilateral breast second stage reconstructions with silicone gel style implants and Allomax graft on 03/19/[address] Rodriguez. She reports that yesterday she started having increased swelling, redness, increased pain on the outer aspect of the right breast/axilla. She contacted Dr. Rodriguez and the patient was advised to come to the ER to be evaluated. She denies any fever/chills, no nausea/vomiting, or malaise. In the ED her labs were stable, no elevated WBC count. Soft tissue US was performed which noted mild nonspecific soft tissue edema and small pericapsular seroma, no evidence of abscess. Pt was started on antibiotics with Zosyn and Vancomycin which has been continued. Pt also with hx of subclavian DVT thought to be related to her port which had to be removed. She was treated with Eliquis 5mg po BID up until around 10 days ago when it was held for surgery and she had repeat US which reportedly revealed the clot had resolved. Pt states that her Oncologist told her she didn' t need to resume the Eliquis post-operatively. Review of Systems Constitutional: DENIES: Fever, Chills, Change in appetite Eyes: DENIES: Vision loss Ears, nose, mouth, throat: DENIES: Hearing loss Respiratory: DENIES: Cough, Shortness of breath Cardiovascular: DENIES: Chest pain, Lower Extremity Edema Gastrointestinal: DENIES: Abdominal pain, Constipation, Diarrhea Integumentary: COMPLAINS OF: Abnormal pigmentation, Breast skin changes Neurologic: DENIES: Headache, Localized weakness Psychiatric: DENIES: Confusion Past Family Social History Past Medical History Stage IV. 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 Plummer Port placement and removal Bilateral breast second stage reconstructions with silicone gel style implants and Allomax graft on 03/19/[address] Rodriguez Reported Medications Hydrocodone-Acetaminophen 5-325 mg Tab 1 Tab PO Q4H PRN 7 Days Bactrim DS (Sulfamethoxazole-Trimethoprim) 800-160 Mg Tab 1 Tab PO BID 7 Days Eliquis (Apixaban) 5 Mg Tab 5 Mg PO BID Probiotic (Lactobacillus Acidophilus) 10 Billion Cell Cap 1 Cap PO DAILY Tamoxifen (Tamoxifen Citrate) 20 Mg Tab 20 Mg PO DAILY Allergies: Coded Allergies: No Known Allergies (Verified Allergy, Unknown, 03/19/18) Family History Noncontributory Social History Pt is and lives locally Denies any alcohol, tobacco or illicit drug use Pt is originally from [place]. She immig[place] the [place] in [place] Physical Exam Vital Signs Vital Signs Date Time Temp Pulse Resp B/P (MAP) Pulse Ox O2 Delivery O2 Flow Rate FiO2 03/23/18 05:05 98.0 70 17 102/56 (71) 98 03/22/18 23:47 97.9 78 17 110/60 (77) 98 03/22/18 21:19 97.8 80 16 107/59 (75) 97 03/22/18 16:54 18 03/22/18 16:33 98.0 97 18 133/95 (108) 97 Physical Exam GENERAL: This is a well-nourished, well-developed patient, in no apparent distress. SKIN: Left breast without any erythema or swelling, incisions are clean and intact. Right breast with edema and skin color changes related to previous XRT and also with some erythema and tenderness on the lateral aspect of the breast. HEENT: Atraumatic. Normocephalic. No temporal or scalp tenderness. No scleral icterus. Airway patent. NECK: Trachea midline, supple, nontender. CARDIO: Regular. RESP: CTA bilaterally. No wheezes, rales, or rhonchi. ABD: +BS, soft, non-tender, nondistended. EXT: Extremities without clubbing, cyanosis, or edema. NEURO: Awake and alert. Motor and sensory grossly within normal limits. Normal speech. Laboratory Laboratory Tests Test 03/22/18 18:30 White Blood Count 5.1 Red Blood Count 4.33 Hemoglobin 12.3 Hematocrit 36.8 Mean Corpuscular Volume 84.9 Mean Corpuscular Hemoglobin 28.4 Mean Corpuscular Hemoglobin Concent 33.4 Red Cell Distribution Width 15.6 Platelet Count 184 Mean Platelet Volume 8.5 Neutrophils (%) (Auto) 58.7 Lymphocytes (%) (Auto) 33.7 Monocytes (%) (Auto) 5.9 Eosinophils (%) (Auto) 0.9 Basophils (%) (Auto) 0.8 Neutrophils # (Auto) 3.0 Lymphocytes # (Auto) 1.7 Monocytes # (Auto) 0.3 Eosinophils # (Auto) 0.0 Basophils # (Auto) 0.0 CBC Comment DIFF FINAL Differential Comment Blood Urea Nitrogen 7 Creatinine 0.90 Random Glucose 80 Calcium Level 9.4 Sodium Level 138 Potassium Level 3.9 Chloride Level 101 Carbon Dioxide Level 25.8 Anion Gap 11 Estimat Glomerular Filtration Rate 68 Date/Time Source Procedure Growth Status 03/22/18 18:30 Blood Peripheral Aerobic Blood Culture Pending Received 03/22/18 18:30 Blood Peripheral Anaerobic Blood Culture Pending Received Result Diagram: 03/22/18 1830 03/22/18 1830 Imaging Last Impressions Breast Ultrasound 03/22/18 0000 Signed Impressions: CONCLUSION: Mild nonspecific soft tissue edema and small pericapsular seroma. N o evidence of abscess. Caprini VTE Risk Assessment Caprini VTE Risk Assessment: Mod/High Risk (score >= 2) Caprini Risk Assessment Model Point Value = 1 Point Value = 2 Point Value = 3 Point Value = 5 Age 41-60 Minor surgery BMI > 25 kg/m2 Swollen legs Varicose veins or History of unexplained or recurrent spontaneous Oral contraceptives or hormone replacement Sepsis (< 1 month) Serious lung disease, including pneumonia (< 1 month) Abnormal pulmonary function Acute myocardial infarction Congestive heart failure (< 1 month) History of inflammatory bowel disease Medical patient at bed rest Age 61-74 Arthroscopic surgery Major open surgery (> 45 min) Laparoscopic surgery (> 45 min) Malignancy Confined to bed (> 72 hours) Immobilizing plaster cast Central venous access Age >= 75 History of VTE Family history of VTE Factor V Leiden Prothrombin [id number] Lupus anticoagulant Anticardiolipin antibodies Elevated serum homocysteine Heparin-induced thrombocytopenia Other congenital or acquired thrombophilia Stroke (< 1 month) Elective arthroplasty Hip, pelvis, or leg fracture Acute spinal cord injury (< 1 month) Prophylaxis Regimen Total Risk Factor Score Risk Level Prophylaxis Regimen 0-1 Low Early ambulation 2 Moderate Order ONE of the following: *Sequential Compression Device (SCD) *Heparin 5000 units SQ BID 3-4 Higher Order ONE of the following medications: *Heparin 5000 units SQ TID *Enoxaparin/Lovenox 40 mg SQ daily (WT < 150 kg, CrCl > 30 mL/min) *Enoxaparin/Lovenox 30 mg SQ daily (WT < 150 kg, CrCl > 10-29 mL/min) *Enoxaparin/Lovenox 30 mg SQ BID (WT < 150 kg, CrCl > 30 mL/min) AND/OR *Sequential Compression Device (SCD) 5 or more Highest Order ONE of the following medications: *Heparin 5000 units SQ TID (Preferred with Epidurals) *Enoxaparin/Lovenox 40 mg SQ daily (WT < 150 kg, CrCl > 30 mL/min) *Enoxaparin/Lovenox 30 mg SQ daily (WT < 150 kg, CrCl > 10-29 mL/min) *Enoxaparin/Lovenox 30 mg SQ BID (WT < 150 kg, CrCl > 30 mL/min) AND *Sequential Compression Device (SCD) Assessment and Plan Problem List: (1) Postoperative seroma Status: Acute Plan: Post-operative seroma Metastatic breast cancer, BRCA2 positive - Pt is a 42 y/o female originally from [place], with right breast cancer diagnosed in March of 2016. She was treated with lumpectomy and axillary dissection for a T2N3 carcinoma involving infraclavicular lymph nodes and chemotherapy. Pt also received axillary and right breast radiation. Her tumor was ER/CT positive and HER2/malick amplified. She also underwent genetic testing which was positive for a heterozygous BRCA2 mutation. She subsequently immig[place] to the [place] and has been following with Dr. Kee in medical oncology and was found to have some liver lesions and was treated with Taxotere, Trastuzumab, Pertuzumab completed in 01/2018 with great response and resolution of the liver lesions on last imaging studies. - Pt recently underwent bilateral breast second stage reconstructions with silicone gel style implants and Allomax graft on 03/19/[address] Rodriguez. - She presented to the ED on 03/22/18 for increased swelling, redness, increased pain on the outer aspect of the right breast/axilla. - In the ED her labs were stable, no elevated WBC count. - Soft tissue US (03/22/18) --> mild nonspecific soft tissue edema and small pericapsular seroma, no evidence of abscess. - Pt was started on antibiotics with Zosyn and Vancomycin which has been continued. - Dr. Rodriguez is following. - Monitor progress on IV Abx - At this time surgical intervention is not planned - Supportive care - DVT prophylaxis ADDENDUM: - Pt re-evaluated by Dr. Rodriguez on 03/22 and it was felt that the pts erythema and swelling and improved and he cleared her for discharge to home. - We offered the pt to stay the night to continue IV antibiotics but she declined and requested discharge to home. - Pt will complete her course of Bactrim she was on post-operatively and we will add Keflex 500mg TD x 7 days to cover for Strep as well - Plastic surgery recommended that the pt keep the incision lines covered with gauze and bra and FU in [facility] clinic on Saturday with Dr. Rodriguez. (2) Hx of deep venous thrombosis ICD Codes: Z86.718 - Personal history of other venous thrombosis and embolism Status: Resolved Plan: - Pt with hx of subclavian vein DVT thought to be related to her port which had to be removed. - She was treated with Eliquis 5mg po BID up until around 10 days ago when it was held for surgery and she had repeat US which reportedly revealed the clot had resolved. - Pt states that her Oncologist told her she didn't need to resume the Eliquis post-operatively. (3) Breast CA ICD Codes: C50.919 - Malignant neoplasm of unspecified site of unspecified female breast Status: Chronic Plan: - See above (4) BRCA2 positive ICD Codes: Z15.01 - Genetic susceptibility to malignant neoplasm of breast; Z15.02 - Genetic susceptibility to malignant neoplasm of ovary Status: Chronic Plan: - See above Problem Qualifiers (1) Postoperative seroma: Qualified Codes: L76.34 - Postprocedural seroma of skin and subcutaneous tissue following other procedure (2) Breast CA: Qualified Codes: C50.911 - Malignant neoplasm of unspecified site of right female breast; Z17.0 - Estrogen receptor positive status [ER+] Sadaf Gaston Mar 23, 2018 08:18
[2018-03-23 08:21] VITALS: BP 100/60; PULSE 68; RESP 18; TEMP 98.2; O2SAT 96
[2018-03-23] MEDS ORDERED: ANAS1 PO (08:24)
[2018-03-23] MEDS ORDERED: CALC1TAB87 PO (08:25)
[2018-03-23] MEDS ORDERED: VANCOMYCIN 1,000 MG/NS 250 ML IV SCH ×2 (09:00)
[2018-03-23] MEDS ORDERED: APIXABAN 5 MG TABLET PO SCH (09:00)
[2018-03-23] MEDS ORDERED: LACTOBACILLUS ACIDOPHILUS TAB PO SCH (09:00)
[2018-03-23] MEDS ORDERED: ANASTROZOLE 1 MG TAB PO SCH (09:00)
[2018-03-23] MEDS ORDERED: CALCIUM/VITAMIN D 250 MG/125 U TAB PO SCH (09:00)
[2018-03-23] MEDS ORDERED: TAMOXIFEN CITRATE 10 MG TAB PO SCH (09:00)
--- NOTE | 2018-03-23 11:04 | PD.PLAS.PN ---
Subjective Remarks Patient feeling better, pain much reduced. No fever, no other issues Right breast - redness nearly gone, edema also much better on the flap and areola More soft to touch as well. No drainage or redness at incision line. She can be discharged when ok with medical team - on oral antibiotics for at least one more week. Will let medical team decide what antibiotics to use. I will see her in [facility] on Saturday. Vital Signs Date Time Temp Pulse Resp B/P (MAP) Pulse Ox O2 Delivery O2 Flow Rate FiO2 03/23/18 08:21 98.2 68 18 100/60 (73) 96 03/23/18 05:05 98.0 70 17 102/56 (71) 98 03/22/18 23:47 97.9 78 17 110/60 (77) 98 03/22/18 21:19 97.8 80 16 107/59 (75) 97 03/22/18 16:54 18 03/22/18 16:33 98.0 97 18 133/95 (108) 97 Laboratory Tests Test 03/22/18 18:30 White Blood Count 5.1 Red Blood Count 4.33 Hemoglobin 12.3 Hematocrit 36.8 Mean Corpuscular Volume 84.9 Mean Corpuscular Hemoglobin 28.4 Mean Corpuscular Hemoglobin Concent 33.4 Red Cell Distribution Width 15.6 Platelet Count 184 Mean Platelet Volume 8.5 Neutrophils (%) (Auto) 58.7 Lymphocytes (%) (Auto) 33.7 Monocytes (%) (Auto) 5.9 Eosinophils (%) (Auto) 0.9 Basophils (%) (Auto) 0.8 Neutrophils # (Auto) 3.0 Lymphocytes # (Auto) 1.7 Monocytes # (Auto) 0.3 Eosinophils # (Auto) 0.0 Basophils # (Auto) 0.0 CBC Comment DIFF FINAL Differential Comment Blood Urea Nitrogen 7 Creatinine 0.90 Random Glucose 80 Calcium Level 9.4 Sodium Level 138 Potassium Level 3.9 Chloride Level 101 Carbon Dioxide Level 25.8 Anion Gap 11 Estimat Glomerular Filtration Rate 68 Date/Time Source Procedure Growth Status 03/22/18 18:30 Blood Peripheral Aerobic Blood Culture Pending Received 03/22/18 18:30 Blood Peripheral Anaerobic Blood Culture Pending Received Result Diagram: 03/22/18 1830 03/22/18 1830 Domenico Rodriguez MD Mar 23, 2018 11:04
[2018-03-23 12:11] VITALS: BP 100/63; PULSE 72; RESP 20; TEMP 98; O2SAT 96
[2018-03-23] MEDS ORDERED: CEPH-460 PO (14:41)
--- NOTE | 2018-03-23 14:49 | HHI.DCPOC ---
Discharge Care Plan Diagnosis: (1) Postoperative seroma (2) Breast CA (3) BRCA2 positive (4) Hx of deep venous thrombosis Goals to Promote Your Health - Patient is to complete the prescription for Bactrim that she was given post- operatively - She is also to take Keflex 500mg three times daily x 7 days. - Per Dr. Rodriguez, the patient can shower at home, keep the incision lines covered with gauze and bra - She is to FU in [facility] clinic on Saturday with Dr. Rodriguez - call for appt [phone] Directions to Meet Your Goals Take your medications as prescribed Follow your dietary instruction Follow activity as directed Keep your appointments as scheduled Take your immunizations and boosters as scheduled If your symptoms worsen call your PCP, if no PCP go to Urgent Care Center or Emergency Room Smoking is Dangerous to Your Health. Avoid second hand smoke Call the 24-hour hour crisis hotline for domestic abuse at Sadaf Gaston Mar 23, 2018 14:49
[2018-03-24] MEDS ORDERED: PHARMACY ORDERED LAB ONE (08:45)
== END 2018-03-23 16:19 | disposition home or self-care (01) ==
LOC: NEPD 16:30 → NEDA 20:18 → NEPGCP 21:18
PROVIDERS: ADMIT Hospitalist; ATTEND Hospitalist
DX: L76.34 Postprocedural seroma of skin and subcutaneous tissue following other procedure (principal); Z85.3 Personal history of malignant neoplasm of breast; Z92.3 Personal history of irradiation; Z92.21 Personal history of antineoplastic chemotherapy; Z86.718 Personal history of other venous thrombosis and embolism; Z15.02 Genetic susceptibility to malignant neoplasm of ovary; Z90.13 Acquired absence of bilateral breasts and nipples; Z85.05 Personal history of malignant neoplasm of liver; Z98.82 Breast implant status
CPT/HCPCS: 76642; 80048; 85025; 87040; 96365; 96366; 96375; 96376; 99285; G0378; J2543; J3370; J7050